=== PATIENT | male | born 1945 | race Caucasian/White ===

== ENCOUNTER 2016-08-27 07:28 | Day surgery (SDC) | payer MEDICARE ==
[2016-08-27] VITALS (8 sets, daily range): BP systolic 117–134; BP diastolic 63–81; PULSE 57–64; RESP 16–20; TEMP 98.4–98.9; O2SAT 92–96
[~2016-08-27] VITALS: Ht 172.7 cm; Wt 82.7 kg
[~2016-08-27 07:28] MED LIST: ASPI81 PO; AVOD0.5C PO; COMBAER INH; LISI-363 PO; OMEP20TA PO; PROP120 PO; SIMV20TA PO; TAMS0.4C67 PO; TRAZ100 PO; VITA100017 PO
[2016-08-27] MEDS ORDERED: SODIUM CHLOR 0.9% 1000 ML INJ 1,000 ML IV SCH (08:00)
[2016-08-27] MEDS ORDERED: FLUT50SP EACH NARE (08:17)
[2016-08-27] MEDS ORDERED: ASPI81CH CHEW (08:17)
[2016-08-27] MEDS ORDERED: AVOD0.5C PO (08:17)
[2016-08-27] MEDS ORDERED: PROP120C PO (08:17)
[2016-08-27] MEDS ORDERED: ALFU10TA2 PO (08:17)
[2016-08-27] MEDS ORDERED: OMEP20TA PO (08:17)
[2016-08-27] MEDS ORDERED: SIMV20TA PO (08:17)
[2016-08-27] MEDS ORDERED: TRAZ50TA12 PO (08:17)
[2016-08-27] MEDS ORDERED: LISI20TA PO (08:17)
[2016-08-27] MEDS ORDERED: VENTAER INH (08:17)
[2016-08-27] MEDS ORDERED: OMEG1CAP28 PO (08:17)
[2016-08-27] MEDS ORDERED: VITA500T83 PO (08:17)
[2016-08-27] MEDS ORDERED: LIDOCAINE HCL 1% 20 ML VIAL ONE (09:35)
[2016-08-27] MEDS ORDERED: fentaNYL CITRATE 250 MCG/5 ML AMP ONE (09:36)
[2016-08-27] MEDS ORDERED: MIDAZOLAM HCL 5 MG/5 ML VIAL ONE (09:36)
--- NOTE | 2016-08-27 10:09 | PD.RAD ---
Post CT Procedure Prog Note Pre Procedure Diagnosis: (1) Liver mass Post Procedure Diagnosis: (1) Liver mass Procedure Date: Aug 27, 2016 Supervising Radiologist: Yamil Price Anesthesia: Local, Conscious Sedation Plan of Activity Patient to Unit: [facility] Patient Condition: Good Additional Comments: Successful CT guided biopsy. 2 core samples obtained. follow up CT unchanged. Full report to follow See PACS Report for procedural detail/treatment Yamil Price MD Aug 27, 2016 10:09
--- NOTE | 2016-08-27 10:46 | RADRPT ---
EXAM DATE/TIME: 08/27/2016 09:51 This report includes an Addendum and supersedes previous reports for this exam. [facility] COMPARISON: No previous studies available for comparison. INDICATIONS : Evaluate for metastic disease. SEDATION TIME: 15 minutes BIOPSY SITE: liver MEDICATION(S): 1.) 1 mg midazolam (Versed) IV 2.) 50 mcg fentanyl (Sublimaze) IV DEVICE(S): 1.) 18 gauge Temno core biopsy needle MEDICAL HISTORY : Hepatitis. SURGICAL HISTORY : None. ENCOUNTER: Initial ACUITY: 1 day PAIN SCORE: 0/10 LOCATION: liver. A total of two core specimen(s) were obtained and sent to the laboratory for pathologic evaluation. PROCEDURE: 1. CT guided liver biopsy. 2. Conscious sedation with continuous EKG and oximetry monitoring. 3. EKG and oximetry remained stable throughout the procedure. Prior to the procedure informed consent was obtained. Any appropriate prior imaging studies were rev iewed. Using automated exposure control and adjustment of the mA and/or kV according to patient size, radiat ion dose was kept as low as reasonably achievable to obtain optimal diagnostic quality images. The site was prepped in a sterile fashion. Full sterile technique was used, including cap, mask, jackie rile gloves and gown and a large sterile sheet. Hand hygiene and 2% chlorhexidine and/or betadine/al cohol prep was utilized per protocol for cutaneous antisepsis. The skin and subcutaneous tissues wer e infiltrated with local anesthetic solution. With CT guidance the previously identified target was localized. Biopsy was performed using an 18 gau ge Bubblesno biopsy gun. 2 biopsies were performed. Adequate hemostasis was obtained with compression at the puncture site. Follow-up CT scan reveals no hemorrhage. The patient tolerated the procedure well and there were no complications. The patient was returned to the Radiology Outpatient Unit in stable condition. CONCLUSION: Uncomplicated CT guided biopsy. Yamil Price MD on August 27, 2016 at 10:43 Board Certified Radiologist. This report was verified electronically. ADDENDUM: The pathology results were reviewed and were positive for adenocarcinoma. Yamil Price MD on August 30, 2016 at 10:39 Board Certified Radiologist. This report was verified electronically.
== END 2016-08-27 14:30 | disposition home or self-care (01) ==
LOC: HRAD 07:28 → HRIP 07:37 → HRAD 14:30
PROVIDERS: ATTEND Family Medicine
DX: C22.7 Other specified carcinomas of liver (principal); M19.90 Unspecified osteoarthritis, unspecified site; J45.909 Unspecified asthma, uncomplicated; K21.9 Gastro-esophageal reflux disease without esophagitis
CPT/HCPCS: 47000; 77012; 88307; 88341; 88342; J2250; J3010; J7030